=== PATIENT | male | born 1985 | race Caucasian/White ===

== ENCOUNTER 2020-01-10 07:52 | Outpatient (CLI) | payer MEDICARE, MEDICAID, SELFPAY ==
[2020-01-11 17:25] LABS: COVID-19 RT-PCR Result NEGATIVE (Negative)
== END 2020-01-10 08:12 ==
PROVIDERS: Visit Provider Dentist Pediatric Dentistry
DX: Z11.59 Encounter for screening for other viral diseases (principal); Z01.818 Encounter for other preprocedural examination
CPT/HCPCS: U0003

== ENCOUNTER 2020-01-14 06:21 | Day surgery (SDC) | payer MEDICARE, MEDICAID, SELFPAY ==
[2020-01-14] VITALS (7 sets, daily range): BP systolic 119–144; BP diastolic 74–91; PULSE 93–101; RESP 18–22; TEMP 36.4–36.9; O2SAT 92–96
[2020-01-14] MEDS: Lactated Ringers 1,000 ML 80 ML IV (07:55)
--- NOTE | 2020-01-14 15:35 | W.PM.DSUDISC ---
Discharge Plan Disposition Patient Disposition: HOME Condition: Stable Discharge Details Attending Provider: Nuria Sosa Primary Care Provider: Jeniffer Pearce Home Meds and New Rx's Prescriptions: No Action multivitamin Tablet 1 tab PO DAILY RF: 0 metformin 500 mg Tablet 500 mg PO BID RF: 0 clozapine 100 mg Tablet 600 mg PO HS RF: 0 clonazepam 0.5 mg Tablet 1 mg PO QHS RF: 0 pantoprazole 40 mg Tablet,Delayed Release (Dr/Ec) 40 mg PO DAILY RF: 0 lisinopril 10 mg Tablet 10 mg PO DAILY RF: 0 docusate sodium [Docusil] 100 mg Capsule 100 mg PO BID RF: 0 trifluoperazine 10 mg Tablet 10 mg PO HS RF: 0 clozapine 25 mg Tablet 50 mg PO HS RF: 0 albuterol sulfate 90 mcg/actuation Hfa Aerosol Inhaler 1 puff INHALATION QID PRNRF: 0 ipratropium bromide 42 mcg (0.06 %) [place],Non-Aerosol 2 spray INTRANASAL HS RF: 0 fenofibrate nanocrystallized 48 mg Tablet 48 mg PO HS RF: 0 melatonin 5 mg Capsule 5 mg PO HS RF: 0 Discharge Instructions Stand Alone Forms: [facility] ([facility]) Activity:: Activity as Tolerated Diet:: cold, soft Discharge Orders Discharge Orders: Discharge Order (Routine); Ordered 01/14/20 Ordered By: Nuria Sosa DS: Diagnosis Discharge Diagnosis (1) Anxiety in acute stress reaction: Status: Acute (2) Dental caries extending into dentin: Status: Acute
--- NOTE | 2020-01-14 15:38 | W.PM.OP ---
Date of service: 01/14/20 Time of Service: 15:38 Operative Note Operative Note DATE OF PROCEDURE: 01/14/20 PRE-OP DIAGNOSIS: dental caries, acute situational anxiety post full mouth dental rehabilitation PROCEDURE: full mouth dental rehabilitation SURGEON: Nuria Sosa ANESTHESIA: PIOTR ESTIMATED BLOOD LOSS: 30 PATHOLOGY: none sent COMPLICATIONS: None Patient was transported to: PACU Patient's condition: stable Indications: This is a 34 year old male whose previous dental exam was completed on 10/31/2019 in the pediatric dental clinic. ?The lack of cooperative ability and extent of rehabilitation precluded treatment on an outpatient basis. Procedure Description: The patient was brought to the operating room in a supine position. ?Mask induction was performed with sevofluorane, nitrous oxide, and oxygen and IV of lacted ringers solution was initiated in the left dorsum of the hand. ?A nasotracheal intubation tube was placed in the right nares. The intubation procedure was atraumatic and resulted in a satisfactory level of anesthesia. ? 4 bitewing and 14 periapical intraoral radiographs were taken for diagnostic purposes and reviewed. ?The patient was properly draped for the procedure and 1 throat pack was placed at 8:37 . The oral cavity was disinfected with chlorhexidine and a toothbrush. ?A thorough dental prophylaxis was performed. ?After treatment planning, the following procedures were accomplished under rubber dam isolation: Tooth #2 (upper right second permanent molar)-received an O composite resin with etch, prime and gamez elect, TPH shade A3, clinpro sealant Tooth #4 (upper right second premolar)-received an MO composite resin with etch, prime and gamez elect, TPH shade A3, clinpro sealant Tooth #5 (upper right first premolar)- received an MOB composite resin with etch, prime and gamez elect, TPH shade A3, clinpro sealant Tooth #6 (upper right permanant canine)-received activa and a F composite resin with etch, prime and gamez elect, TPH shade A2 Tooth #7 (upper right permanent lateral incisor)-received a MF composite resin with etch, prime and gamez elect, TPH shade A2 Tooth #8 (upper right permanent central incisor)- received activa and a DFL composite resin with etch, prime and gamez elect, TPH shade A2 Tooth #9 (upper left permanent central incisor)- received activa and a DFL composite resin with etch, prime and gamez elect, TPH shade A2 Tooth #10 (upper left permanent lateral incisor)- received activa and a DFL composite resin with etch, prime and gamez elect, TPH shade A2 Tooth #11 (upper left permanent canine)-received activa and a MDF composite resin with etch, prime and gamez elect, TPH shade A2 Tooth #12 (upper left first premolar)- received a MODB composite resin with etch, prime and gamez elect, TPH shade A3, clinpro sealant Tooth #13 (upper left second premolar)- received a MOB composite resin with etch, prime and gamez elect, TPH shade A3, clinpro sealant Tooth #15 (upper left second permanent molar)-received activa and a composite resin with etch, prime and gamez elect, TPH shade A3, clinpro sealant Tooth #18 (lower left second permanent molar)- received activa and a MODB composite resin with etch, prime and gamez elect, TPH shade A3, clinpro sealant Tooth #20 (lower left second premolar)- received a MODB composite resin with etch, prime and gamez elect, TPH shade A3, clinpro sealant Tooth #21 (lower left first premolar)- received a MOB composite resin with etch, prime and gamez elect, TPH shade A3, clinpro sealant Tooth #22 (lower left permanent canine)- received a MFD composite resin with etch, prime and gamez elect, TPH shade A3 Tooth #23 (lower left permanent lateral incisor)-received a DF composite resin with etch, prime and gamez elect, TPH shade A2 Tooth #26 (lower right permanent lateral incisor)-received a MF composite resin with etch, prime and gamez elect, TPH shade A2 Tooth #28 (lower right first premolar)- received activa and an OB composite resin with etch, prime and gamez elect, TPH shade A2, clinpro sealant Tooth #29 (lower right second premolar)-received activa and a B composite resin with etch, prime and gamez elect, TPH shade A2, clinpro sealant Tooth #30 (lower right first permanent molar)- tooth was unrestorable and extracted in whole via elevator and forceps. Gelfoam was placed in extraction socket and hemostasis was achieved via digital pressure and gauze. Tooth #31 (lower right second permanent molar)-tooth was unrestorable and extracted in whole via elevator and forceps. Gelfoam was placed in extraction socket and hemostasis was achieved via digital pressure and gauze. Tooth #32 (lower right third permanent molar)tooth was unrestorable and extracted in pieces via elevator and forceps. Gelfoam was placed in extraction socket and hemostasis was achieved via digital pressure and gauze. Two chromic gut sutures placed through papilla around extraction sites. Approximately 1.8 mL of 2% Lidocaine with 1:100,000 epinephrine was administered as local anesthetic. ? The oral cavity was then thoroughly irrigated with sterile water and disinfected with chlorhexidine, suctioned clear. ?A topical application of 5% neutral sodium fluoride varnish was applied. ?The throat pack was removed at 15:12 . Approximately 900 mL of lactated ringers was delivered as intraoperative fluids. The patient was extubated in the operating room and brought to the recovery room breathing spontaneously and in satisfactory condition. Attestation Statement: I was present and assisting for the entire procedure.
== END 2020-01-14 17:29 | disposition home or self-care (01) ==
PROVIDERS: PCP Nurse Practitioner Family; Visit Provider Dentist Pediatric Dentistry
PROC: (CPT 41899; principal; 2020-01-14 07:30)
DX: F41.1 Generalized anxiety disorder (principal); F43.0 Acute stress reaction; K02.62 Dental caries on smooth surface penetrating into dentin
CPT/HCPCS: D1351; D2940; D7140; D1110; J0131; J1100; J1885; J2405; J2704